=== PATIENT | male | born 1955 | race Caucasian/White ===

== ENCOUNTER 2017-10-22 02:36 | Outpatient (CLI) | payer MEDICARE, MEDICAID | END 2017-10-22 23:59 | disposition home or self-care (01) | LOC: DIABETIC 02:36 | PROVIDERS: ATTEND Specialist | DX: E10.65 Type 1 diabetes mellitus with hyperglycemia (principal); I10 Essential (primary) hypertension | CPT/HCPCS: G0108 ==

== ENCOUNTER 2017-11-29 05:04 | Outpatient (CLI) | payer MEDICARE, MEDICAID | END 2017-11-29 23:59 | disposition home or self-care (01) | LOC: DIABETIC 05:04 | PROVIDERS: ATTEND Specialist | DX: E10.65 Type 1 diabetes mellitus with hyperglycemia (principal); I12.9 Hypertensive chronic kidney disease with stage 1 through stage 4 chronic kidney disease, or unspecified chronic kidney disease; E10.22 Type 1 diabetes mellitus with diabetic chronic kidney disease; N18.9 Chronic kidney disease, unspecified | CPT/HCPCS: G0108 ==

== ENCOUNTER 2017-12-30 04:58 | Outpatient (CLI) | payer MEDICARE, MEDICAID | END 2017-12-30 23:59 | disposition home or self-care (01) | LOC: DIABETIC 04:58 | PROVIDERS: ATTEND Specialist | DX: E10.65 Type 1 diabetes mellitus with hyperglycemia (principal); I12.9 Hypertensive chronic kidney disease with stage 1 through stage 4 chronic kidney disease, or unspecified chronic kidney disease; E10.22 Type 1 diabetes mellitus with diabetic chronic kidney disease; N18.9 Chronic kidney disease, unspecified | CPT/HCPCS: G0108 ==

== ENCOUNTER 2018-03-14 04:58 | Outpatient (CLI) | payer MEDICARE, MEDICAID | END 2018-03-14 23:59 | disposition home or self-care (01) | LOC: DIABETIC 04:58 | PROVIDERS: ATTEND Specialist | DX: E11.9 Type 2 diabetes mellitus without complications (principal); Z71.3 Dietary counseling and surveillance | CPT/HCPCS: G0108 ==

== ENCOUNTER 2018-05-12 02:28 | Outpatient (CLI) | payer MEDICARE, MEDICAID | END 2018-05-12 23:59 | disposition home or self-care (01) | LOC: DIABETIC 02:28 | PROVIDERS: ATTEND Specialist | DX: E10.9 Type 1 diabetes mellitus without complications (principal); I10 Essential (primary) hypertension | CPT/HCPCS: G0108 ==

== ENCOUNTER 2018-11-12 02:29 | Outpatient (CLI) | payer MEDICARE, MEDICAID | END 2018-11-12 23:59 | disposition home or self-care (01) | LOC: DIABETIC 02:29 | PROVIDERS: ATTEND Specialist | DX: E10.65 Type 1 diabetes mellitus with hyperglycemia (principal); I10 Essential (primary) hypertension; Z79.4 Long term (current) use of insulin | CPT/HCPCS: G0108 ==

== ENCOUNTER 2019-01-22 03:42 | Outpatient (CLI) | payer MEDICARE, MEDICAID | END 2019-01-22 23:59 | disposition home or self-care (01) | LOC: DIABETIC 03:42 | PROVIDERS: ATTEND Specialist | DX: E10.65 Type 1 diabetes mellitus with hyperglycemia (principal); I10 Essential (primary) hypertension | CPT/HCPCS: G0108 ==

== ENCOUNTER 2019-09-01 00:16 | Outpatient (CLI) | payer MEDICARE, MEDICAID | END 2019-09-01 23:59 | disposition home or self-care (01) | LOC: DIABETIC 00:16 | PROVIDERS: ATTEND Specialist | DX: E10.65 Type 1 diabetes mellitus with hyperglycemia (principal); I10 Essential (primary) hypertension; Z79.4 Long term (current) use of insulin; Z79.899 Other long term (current) drug therapy | CPT/HCPCS: G0108 ==

== ENCOUNTER 2019-12-02 01:58 | Outpatient (CLI) | payer MEDICARE, MEDICAID | END 2019-12-02 23:59 | disposition home or self-care (01) | LOC: DIABETIC 01:58 | PROVIDERS: ATTEND Specialist | DX: E10.65 Type 1 diabetes mellitus with hyperglycemia (principal); Z79.84 Long term (current) use of oral hypoglycemic drugs | CPT/HCPCS: G0108 ==